=== PATIENT | male | born 1955 | race Caucasian/White ===

== ENCOUNTER → 2020-09-04 | Outpatient (CLI) | payer MEDICARE, OTHER ==
[~2020-09-04] MED LIST: DOXY100C2 PO; FLUT1DIS3 INH; FURO20TA3 PO; METF500T17 PO; PRED5TAB PO; TEST60GE2 BC
== END | disposition home or self-care (01) ==
LOC: CVU 12:38
PROVIDERS: ATTEND Registered Nurse
DX: I08.3 Combined rheumatic disorders of mitral, aortic and tricuspid valves (principal); I10 Essential (primary) hypertension; I42.9 Cardiomyopathy, unspecified; E78.5 Hyperlipidemia, unspecified
CPT/HCPCS: 93306